=== PATIENT | male | born 2005 | race American Indian/Alaskan Native ===

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

== ENCOUNTER 2024-05-29 02:28 | Emergency (ER) | payer OTHER, SELFPAY ==
[2024-05-29 02:30] VITALS: BP 152/73; PULSE 70; RESP 17; TEMP 36.8; O2SAT 98; BMI 28.7
[2024-05-29 02:34] VITALS: PULSE 69; O2SAT 98
--- NOTE | 2024-05-29 02:44 | ED_ITS ---
HPI - GI Bleed General Chief complaint: GI Bleed Stated complaint: blood in stool Time Seen by Provider: 05/29/24 02:29 History of Present Illness HPI Narrative: 19-year-old male with no reported past medical history presents by private vehicle from home for episode of dark red blood in his stool. Patient states that he went to bed in his usual state of health and woke up in the middle of the night to have a bowel movement. He states that after the bowel movement he noticed what appeared to be dark red blood in the toilet bowl. He informed his mother who brought him to the ER for evaluation. Patient reports intermittent upper abdominal discomfort for ?a really long time?, exact timeline uncertain. Denies use of blood thinners. Related Data Home Medications Medication Instructions Recorded Confirmed erythromycin stearate 250 mg ##0 10/20/16 tablet (Erythrocin (as stearate)) hydrocodone 7.5 mg-acetaminophen ##0 10/20/16 300 mg tablet (Vicodin ES) Allergies Allergy/AdvReac Type Severity Reaction Status Date / Time amoxicillin [AMOXICILLIN] Allergy Unknown Unverified 10/23/17 12:43 Patient History Social History Smoking Status: Unknown if ever smoked Smoking Status: Unknown if ever smoked alcohol intake frequency: holidays/special occasions only Substance Use Type: marijuana Exam Initial Vital Signs Initial Vital Signs: Vital Signs Temperature 98.2 F 05/29/24 02:30 Pulse Rate 70 05/29/24 02:30 Respiratory Rate 17 05/29/24 02:30 Blood Pressure 152/73 H 05/29/24 02:30 Pulse Oximetry 98 05/29/24 02:30 Oxygen Delivery Method Room Air 05/29/24 02:30 Const: Awake, alert, no acute distress, nontoxic appearing Cardiac: regular rate, regular rhythm RESP: unlabored, speaking in complete sentences without dyspnea GI: Soft, nontender, nondistended, no rebound, no guarding Rectal: [employer] present, rectal tone intact, non thrombosed hemorrhoidal tissue present, soft brown stool in rectum, no gross blood Skin: Warm, Dry, intact, no rashes Neuro: AO x3, CN II-XII grossly intact, moves all extremities Course Orders Ordered: ED Orders 05/29/24 02:51 CBC Auto Diff [Complete Blood Count AUTO DIFF] Stat CMP [Comprehensive Metabolic Panel] Stat Vital Signs Vital signs: Vital Signs - 8 hr 05/29/24 02:30 Temperature 98.2 F Pulse Rate 70 Respiratory Rate 17 Blood Pressure 152/73 H Pulse Oximetry 98 Oxygen Delivery Method Room Air MDM - GI Bleed Lab Data 05/29/24 02:51 05/29/24 02:51 Labs: Lab Results 05/29/24 Range/Units 02:51 WBC 11.5 H (4.5-11.0) X10^3/uL RBC 5.29 (4.5-5.9) X10^6/uL Hgb 14.8 (13.5-17.5) g/dL Hct 42.6 (41-53) % MCV 80.5 (80-100) fL MCH 28.0 (26-34) PG MCHC 34.8 (30-36) % RDW 14.0 (11.6-14.8) % Plt Count 306 (150-400) X10^3/uL Neut % (Auto) 58.3 (50-75) % Lymph % (Auto) 33.7 (25-40) % [place] % (Auto) 6.1 (3-14) % Eos % (Auto) 1.5 L (2-4) % Baso % (Auto) 0.4 (0-2) % Neut # (Auto) 6700 (3011-8628) /uL Lymph # (Auto) 3900 (2574-1935) /uL [place] # (Auto) 700 (0-900) /uL Eos # (Auto) 200 (0-450) /uL Baso # (Auto) 100 (0-100) /uL Sodium 141 (137-145) mmol/L Potassium 4.0 (3.4-5.1) mmol/L Chloride 107 (98-107) mmol/L Carbon Dioxide 24 (22-32) mmol/L BUN 11 (9-20) mg/dL Creatinine 0.78 (0.66-1.25) mg/dL Estimated GFR > 60 (>60) mL/min BUN/Creatinine Ratio 14.1 (6-22) Glucose 109 H (70-100) mg/dL Calcium 9.3 (8.4-10.2) mg/dL Total Bilirubin 0.4 (0.2-1.3) mg/dL AST 26 (17-59) IU/L ALT 23 (<50) IU/L Alkaline Phosphatase 92 (38-126) U/L Total Protein 7.3 (6.3-8.2) g/dL Albumin 4.7 (3.5-5.0) g/dL Globulin 2.6 (1.7-4.1) g/dL Albumin/Globulin Ratio 1.8 (1.0-2.8) MDM Narrative Medical decision making narrative: Episode of dark red blood in stool. Patient does appear to have hemorrhoidal tissue on exam that it was not actively bleeding and non thrombosed. No gross blood on exam. No melena. Abdomen soft, no reproducible tenderness to light or deep palpation. Basic laboratory work shows normal hemoglobin. Extensive bedside counseling with mother and patient at bedside. Mother had many questions including could this possibly be an ulcer. Presentation is not likely to be an ulcer, but only definitive way to determine ulcer versus other cause of GI bleed is either EGD or colonoscopy, which would be done through either a GI doctor or a general surgeon. Recommended [id number] antacids as needed as well as dietary modifications that could cut down on stomach irritation. Discharge Plan Departure Patient Disposition: Home Clinical Impression: Blood per rectum Instructions: DI for Hemorrhoids Activity Restrictions/Additional Instructions: On your rectal exam today did not notice any bright red blood, but it did notice some hemorrhoid tissue present. Your blood work today did not show any signs of anemia. For hemorrhoids make sure that you drink plenty of water and eat a diet high in fiber. Avoid prolonged sitting on the toilet. If you continued to notice bleeding from your rectum then I recommend talking to either a primary care doctor, a GI doctor, or a general surgeon about the possibility of a colonoscopy. Prescriptions: No Action erythromycin stearate [Erythrocin (as stearate)] 250 MG tablet Qty: 0 hydrocodone-acetaminophen [Vicodin ES] 7.5 MG/300 MG tablet Qty: 0 Stand Alone Forms: Patient Portal/API/Survey
[2024-05-29 02:59] LABS: Add Manual Diff / Slide Review NO; Basophils Absolute Auto 100 /uL (0-100); Basophils Percent Auto 0.4 % (0-2); Eosinophils Absolute Auto 200 /uL (0-450); Eosinophils Percent Auto 1.5 % (2-4); Hematocrit 42.6 % (41-53); Hemoglobin 14.8 g/dL (13.5-17.5); Lymphocytes Absolute Auto 3900 /uL (1100-4500); Lymphocytes Percent Auto 33.7 % (25-40); Mean Corpuscular HGB Conc 34.8 % (30-36); Mean Corpuscular Volume 80.5 fL (80-100); Monocytes Absolute Auto 700 /uL (0-900); Monocytes Percent Auto 6.1 % (3-14); Neutrophils Absolute Auto 6700 /uL (1500-7000); Neutrophils Percent Auto 58.3 % (50-75); Platelet Count 306 X10^3/uL (150-400); Red Blood Cell Count 5.29 X10^6/uL (4.5-5.9); White Blood Cell Count 11.5 X10^3/uL (4.5-11.0)
[2024-05-29 03:15] LABS: Alanine Aminotransferase 23 IU/L (<50); Albumin 4.7 g/dL (3.5-5.0); Albumin Globulin Ratio 1.8 (1.0-2.8); Alkaline Phosphatase 92 U/L (38-126); Aspartate Aminotransferase 26 IU/L (17-59); BUN Creatinine Ratio 14.1 (6-22); Bilirubin Total 0.4 mg/dL (0.2-1.3); Blood Urea Nitrogen 11 mg/dL (9-20); Calcium 9.3 mg/dL (8.4-10.2); Carbon Dioxide 24 mmol/L (22-32); Chloride 107 mmol/L (98-107); Estimated Glomerular Filt Rate > 60 mL/min (>60); Globulin 2.6 g/dL (1.7-4.1); Glucose 109 mg/dL (70-100); HEMOLYSIS < 15 (0-50); Sodium 141 mmol/L (137-145); Total Protein 7.3 g/dL (6.3-8.2)
[2024-05-29 03:29] VITALS: BP 130/67; PULSE 64; RESP 18; TEMP 36.2; O2SAT 93
== END 2024-05-29 03:33 | disposition home or self-care (01) ==
PROVIDERS: Emergency Provider Emergency Medicine
DX: K62.5 Hemorrhage of anus and rectum (principal); R10.10 Upper abdominal pain, unspecified
CPT/HCPCS: 36415; 80053; 85025; 99283